=== PATIENT | male | born 1950 | race Caucasian/White ===

== ENCOUNTER 2017-10-10 00:23 | Emergency (ER) | payer MEDICARE ==
[~2017-10-10] VITALS: Ht 182.9 cm; Wt 98.5 kg
[2017-10-10] MEDS ORDERED: ACETAMINOPHEN 500 MG TABLET PO ONE (01:30)
[2017-10-10] MEDS ORDERED: AMOXICILLIN 500 MG CAPSULE PO SCH (01:30)
[2017-10-10] MEDS ORDERED: IBUPROFEN 200 MG TABLET PO ONE (01:30)
[2017-10-10] MEDS ORDERED: ACETAMINOPHEN 500 MG TABLET ONE (01:38)
[2017-10-10] MEDS ORDERED: IBUPROFEN 200 MG TABLET ONE (01:38)
[2017-10-10 02:18] VITALS: BP 161/76
== END 2017-10-10 02:20 | disposition home or self-care (01) ==
LOC: ED 02:14
DX: K08.89 Other specified disorders of teeth and supporting structures (principal); R51 Headache; E03.9 Hypothyroidism, unspecified
CPT/HCPCS: 99284